=== PATIENT | female | born 1975 | race Caucasian/White ===

== ENCOUNTER 2017-04-01 14:17 | Emergency (ER) | payer MEDICAID ==
[~2017-04-01] VITALS: Ht 162.6 cm; Wt 64.2 kg
[2017-04-01] MEDS ORDERED: SODIUM CHLORIDE FLUSH 10ML SYR IVF ONE (14:30)
[2017-04-01] MEDS ORDERED: SODIUM CHLORIDE 0.9% 1,000ML IVBOLUS ONE (14:30)
[2017-04-01 15:10] LABS: ASPARTATE AMINO TRANSFERASE 16 U/L (15-37); BLOOD UREA NITROGEN 16 mg/dL (7-18)
[2017-04-01] MEDS ORDERED: DIPHENHYDRAMINE 50 MG/ML, 1ML IVPush ONE (16:00)
[2017-04-01] MEDS ORDERED: DIAZEPAM 5 MG/ML, 2ML IVPush ONE (16:00)
[2017-04-01] MEDS ORDERED: METOCLOPRAMIDE 5 MG/ML, 2ML IVPush ONE (16:00)
[2017-04-01] MEDS ORDERED: DIPHENHYDRAMINE 50 MG/ML, 1ML ONE (16:04)
[2017-04-01] MEDS ORDERED: DIAZEPAM 5 MG/ML, 2ML ONE (16:04)
[2017-04-01] MEDS ORDERED: METOCLOPRAMIDE 5 MG/ML, 2ML ONE (16:04)
[2017-04-01] MEDS ORDERED: CARV6.252 PO (16:09)
[2017-04-01] MEDS ORDERED: FLUO40CA2 PO (16:09)
[2017-04-01 16:14] LABS: PATH.CAST-FLAG NOT PRESENT; SPERM-FLAG NOT PRESENT; SRC-FLAG NOT PRESENT; XTAL-FLAG NOT PRESENT; YLC-FLAG NOT PRESENT
[2017-04-01 17:49] VITALS: BP 127/69
== END 2017-04-01 17:51 | disposition home or self-care (01) ==
LOC: ED 16:15
DX: G44.219 Episodic tension-type headache, not intractable (principal); R11.2 Nausea with vomiting, unspecified; F17.210 Nicotine dependence, cigarettes, uncomplicated
CPT/HCPCS: 36415; 80053; 81001; 84703; 85025; 93005; 96361; 96374; 96375; 99285; J1200; J2765; J3360; J7030